=== PATIENT | female | born 1950 | race Caucasian/White ===

== ENCOUNTER 2021-01-10 09:45 | Outpatient (RCR) | payer MEDICARE, SELFPAY ==
[2021-01-10] MEDS: COVID-19 VACC, MRNA(PFIZER)/PF 30 MCG/0.3 ML SYRINGE IM (14:21)
[2021-01-31] MEDS: COVID-19 VACC, MRNA(PFIZER)/PF 30 MCG/0.3 ML SYRINGE IM (14:04)
== END 2021-04-08 23:59 ==
LOC: IMMUN 09:45
PROVIDERS: PCP Preventive Medicine Occupational Medicine; Visit Provider Family Medicine
DX: Z23 Encounter for immunization (principal)
CPT/HCPCS: 0001A; 0002A; 91300